=== PATIENT | female | born 1950 | race Caucasian/White ===

== ENCOUNTER → 2016-07-17 | Outpatient (CLI) | payer OTHER ==
[~2016-07-17] MED LIST: DUONEB 2.5-0.5 M3 ML INH; K-DUR 20 MEQ T20 MEQ PO; LEVOTHYROXIN0.075 MG PO; TRIAMTERENE-HC1 EAC3 PO
== END ==
LOC: CAT 02:20
DX: J47.9 Bronchiectasis, uncomplicated (principal); M47.894 Other spondylosis, thoracic region

== ENCOUNTER → 2016-12-29 | Outpatient (CLI) | payer OTHER | LOC: RAD 15:32 | DX: J98.11 Atelectasis (principal) ==

== ENCOUNTER → 2017-09-09 | Outpatient (CLI) | payer OTHER | LOC: CAT 12:19 | DX: J67.9 Hypersensitivity pneumonitis due to unspecified organic dust (principal); J96.11 Chronic respiratory failure with hypoxia; M35.9 Systemic involvement of connective tissue, unspecified ==